=== PATIENT | male | born 1965 | race Caucasian/White ===

== ENCOUNTER 2019-04-01 03:40 | Emergency (ER) | payer OTHER ==
--- NOTE | 2019-04-01 04:27 | EDM.PDOCBH ---
ED HPI GENERAL MEDICAL PROBLEM - General Chief Complaint: Behavioral/Psych Stated Complaint: HAVING TROUBLE SLEEPING Time Seen by Provider: 04/01/19 03:50 Source of Information: Reports: Patient History Limitations: Reports: No Limitations - History of Present Illness INITIAL COMMENTS - FREE TEXT/NARRATIVE: Mr. Kelly is a very pleasant 54-year-old man with a past medical history significant for anxiety and depression, who states that he, his of 30 years , and daughter live in [place], [place], but that the patient works for the [employer] in [place] during the week, and is home only on weekends. They have had this arrangement for the past month. He states that he and his plan to retire in [place] in about 2 years, but that his daughter is currently in high school, and his is a teacher there in [place], therefore they cannot come to [place] yet. The patient is here in [facility], staying with one of his daughters, her ex-, and their 2 children. The patient states that he and his have a mutual friend, and that this friend has been hanging out with his during the week when he is gone. The patient states that he has previously argued with his about it, and he admits that he even accused his of some things, but he later relented and said that it was okay if they hung out. The patient is concerned, however, because he discovered [facility] that his and friend were watching the sunset together, and that they were still together at 10 PM. He stated "A man should not play in another man's playground." He states that he is feeling anxious about this, and that "I can't shut my brain down." He is here to see if his feelings are justifiable, or if they are unreasonable. The patient states that his anxiety was previously treated with lorazepam, but he was switched to Wellbutrin. Review of the [place] PMPi finds that the patient has 4 prior prescriptions for lorazepam 0.5 mg, from 05/25/16, 06/24/16, 12/2016, and , most recently, 02/17/2017. The patient is not requesting any medications at this time. The patient denies feeling suicidal or homicidal. He denies previously attempted to harm himself, and he states that he has never been psychiatrically hospitalized. He denies recent illness, such as fever, chills, chest pain, palpitations, cough, dyspnea, nausea, vomiting, constipation, diarrhea, abdominal pain, urinary symptoms, recent weight gain or weight loss, recent bloody bowel movements or black bowel movements, joint aches, headaches, or rashes. The patient's PCP is in [place], [place]. His Change Management Consultant is Dr. Iglesia Trinidad, at [facility]. - Related Data Allergies Allergy/AdvReac Type Severity Reaction Status Date / Time No Known Allergies Allergy Verified 04/01/19 03:56 Past Medical History Cardiovascular History: Reports: CAD, High Cholesterol, Hypertension, [place] (x 3) Gastrointestinal History: Reports: GERD, Hemorrhoids Psychiatric History: Reports: Anxiety, Depression - Past Surgical History HEENT Surgical History: Reports: Adenoidectomy, Tonsillectomy Cardiovascular Surgical History: Reports: Coronary Artery Stent (x 5), Other ( See Below) (3 coronary angiograms) Social & Family History - Tobacco Use Smoking Status *Q: Never Smoker - Caffeine Use Caffeine Use: Reports: Coffee - Alcohol Use Alcohol Use History: Yes Alcohol Use Frequency: Socially - Recreational Drug Use Recreational Drug Use: No - Living Situation & Occupation Living situation: Reports: , with Spouse, with Family (1 daughter) Occupation: Employed ([employer]) ED ROS GENERAL - Review of Systems Review Of Systems: ROS reveals no pertinent complaints other than HPI. ED EXAM, BEHAVIORAL HEALTH - Physical Exam Exam: See Below Exam Limited By: No Limitations General Appearance: Alert, WD/WN, No Apparent Distress Eye Exam: Bilateral Eye: EOMI, Normal Inspection Ears: Normal External Exam, Hearing Grossly Normal Nose: Normal Inspection Throat/Mouth: Normal Inspection, Normal Lips, Normal Voice, No Airway Compromise Head: Atraumatic, Normocephalic Neck: Normal Inspection, Full Range of Motion Respiratory/Chest: No Respiratory Distress, Lungs Clear, Normal Breath Sounds, No Accessory Muscle Use Cardiovascular: Normal Peripheral Pulses, Regular Rate, Rhythm, No Edema, No Gallop, No JVD, No Murmur, No Rub GI/Abdominal: Normal Bowel Sounds, Soft, Non-Tender, No Organomegaly, No Distention, No Abnormal Bruit, No Mass (Male) Exam: Deferred Rectal (Males) Exam: Deferred Back Exam: Normal Inspection, Full Range of Motion, NT Extremities: Normal Inspection, Normal Range of Motion, No Pedal Edema, Normal Capillary Refill Neurological: Alert, Normal Cognition, No Motor/Sensory Deficits, Oriented x 3 Psychiatric: Normal Affect Skin Exam: Warm, Dry, Intact, Normal color, No rash COURSE, BEHAVIORAL HEALTH COMP - Course Vital Signs: Last Vital Signs Temp 36.2 C 04/01/19 03:48 Pulse 86 04/01/19 03:48 Resp 20 04/01/19 03:48 BP 149/111 H 04/01/19 03:48 Pulse Ox 97 04/01/19 03:48 Medical Clearance: 04/01/19 04:20 I talked to the patient for a while and reassured him that it is not unreasonable that he is concerned about the situation with his . I suggested that he talk to his friend about appropriate boundaries. The patient requested a counselor in [place], however, I explained that we can refer patients to [facility] here in [place], but I don't know of any counselors in particular in [place]. I suggested that the patient look online or go through the physician referral service at [facility]. The patient was satisfied with that. I will discharge him home. Departure - Departure Time of Disposition: 04:22 Disposition: Home, Self-Care 01 Condition: Good Clinical Impression: Anxiety - Discharge Information *PRESCRIPTION DRUG MONITORING PROGRAM REVIEWED*: Yes *COPY OF PRESCRIPTION DRUG MONITORING REPORT IN PATIENT MAYELA: No Instructions: Living With Anxiety Referrals: Iglesia Trinidad MD [Ordering Only Provider] - PCP,Not In Area [Primary Care Provider] - Forms: ED Department Discharge Additional Instructions: You were seen in the emergency room for feelings of anxiety related to concerns about your . We recommend that you find a counselor in [place]. You can search online, or request one through the physician referral service at [facility]. Continue to take your usual medications as prescribed. If any other problems, please do not hesitate to return to the ER.
== END 2019-04-01 06:55 | disposition home or self-care (01) ==
LOC: JD.ED 03:40
DX: F41.9 Anxiety disorder, unspecified (principal); F32.9 Major depressive disorder, single episode, unspecified; I25.2 Old myocardial infarction; I10 Essential (primary) hypertension; Z79.899 Other long term (current) drug therapy
CPT/HCPCS: 99283

== ENCOUNTER 2021-05-16 00:53 | Emergency (ER) | payer OTHER ==
[2021-05-16] MEDS ORDERED: HYDROmorphone 0.5 MG/0.5 ML Syringe IVPUSH ONE ×2 (01:22→02:50)
[2021-05-16] MEDS ORDERED: Ondansetron 4 MG/2 ML SDV IVPUSH ONE (01:46)
--- NOTE | 2021-05-16 01:48 | EDM.PDOC ---
ED HPI GENERAL MEDICAL PROBLEM - General Chief Complaint: Chest Pain Stated Complaint: CHEST PAIN Time Seen by Provider: 05/16/21 01:14 Source of Information: Reports: Patient, Family () History Limitations: Reports: No Limitations - History of Present Illness INITIAL COMMENTS - FREE TEXT/NARRATIVE: Mr. Kelly is a very pleasant 56-year-old gentleman who now presents the ED after being woken around midnight with severe lower sternal and epigastric pain radiating through to his back. He describes it character as a pressure sensation, but states that it is a pain, not a discomfort. No associated nausea, dyspnea, diaphoresis, or sense of impending doom. The patient has a history of known coronary artery disease, with several MIs in the past. He states that his current symptoms are likely similar to prior MIs. The patient states that he took 3 tablets of nitroglycerin, 5 minutes apart, which did not help his symptoms at all. The patient states that he was diagnosed with COVID-19 on 04/16/2021, then was transferred to [place] on 04/28/2021 with what was thought to be an OK. He states that he underwent a coronary angiogram, finding diffuse disease, but no stents were placed. He states that a CABG was recommended, but not until his lungs improved from COVID pneumonia. He was discharged home on 05/02/2021 with a prescription for an 8-day course of steroids, which he just finished, and antibiotics, whose name he does not recall, which he is still on. Here in the ED today, the patient was initially found to be slightly tachypneic at 23 rpm, otherwise he is hemodynamically stable and afebrile. His initial oxygen saturation was 86% on room air, 95% on 1 L of oxygen per nasal cannula. The patient's PCP is Clark Baez NP, at [facility]. His Filling Winder is Dr. Iglesia Mcgregor, at [facility]. His Cardiothoracic Surgeon is Dr. Samuel Staples, at [facility]. Mid-Sternal Chest Pain Score (Numeric/FACES): 8 - Related Data Allergies Allergy/AdvReac Type Severity Reaction Status Date / Time No Known Allergies Allergy Verified 05/16/21 00:58 Past Medical History Cardiovascular History: Reports: CAD, High Cholesterol, Hypertension, [place] Gastrointestinal History: Reports: GERD, Hemorrhoids Psychiatric History: Reports: Anxiety, Depression - Infectious Disease History Infectious Disease History: Reports: Novel Coronavirus (dx'd 04/16/2021) - Past Surgical History HEENT Surgical History: Reports: Adenoidectomy, Oral Surgery (dental extractions), Tonsillectomy Cardiovascular Surgical History: Reports: Coronary Artery Stent (x 5), Other (See Below) (Coronary angiogram x 3) Social & Family History - Tobacco Use Tobacco Use Status *Q: Never Tobacco User - Caffeine Use Caffeine Use: Reports: Coffee - Alcohol Use Alcohol Use History: Yes Alcohol Use Frequency: Socially - Recreational Drug Use Recreational Drug Use: No - Living Situation & Occupation Living situation: Reports: , with Spouse, with Family (1 daughter) Occupation: Employed ([employer]) ED ROS GENERAL - Review of Systems Review Of Systems: Comprehensive ROS is negative, except as noted in HPI. ED EXAM, GENERAL - Physical Exam Exam: See Below Exam Limited By: No Limitations General Appearance: Alert, WD/WN, Mild Distress (appears uncomfortable) Eye Exam: Bilateral Eye: EOMI, Normal Inspection Ears: Normal External Exam, Hearing Grossly Normal Nose: Normal Inspection Throat/Mouth: Normal Inspection, Normal Lips, Normal Voice, No Airway Compromise Head: Atraumatic, Normocephalic Neck: Normal Inspection, Full Range of Motion Respiratory/Chest: No Respiratory Distress, Lungs Clear, Normal Breath Sounds, No Accessory Muscle Use, Chest Non-Tender (including the lower sternum) Cardiovascular: Normal Peripheral Pulses, Regular Rate, Rhythm, No Edema, No Gallop, No JVD, No Murmur, No Rub Peripheral Pulses: 3+: Radial (L), Radial (R) GI/Abdominal: Normal Bowel Sounds, Soft, Non-Tender (including the epigastrium), No Organomegaly, No Distention, No Abnormal Bruit, No Mass Back Exam: Normal Inspection, Full Range of Motion, NT Extremities: Normal Inspection, Normal Range of Motion, No Pedal Edema, Normal Capillary Refill Neurological: Alert, Oriented, Normal Cognition, No Motor/Sensory Deficits Psychiatric: Anxious Skin Exam: Warm, Dry, Intact, Normal Color, No Rash #1 Interpretation EKG Date: 05/16/21 Time: 00:58 Rhythm: NSR Rate (Beats/Min): 82 [place]: Normal P-Wave: Present QRS: Other (Late transition) ST-T: Normal QT: Normal Comparison: NA - No Prior EKG Course - Vital Signs Last Recorded V/S: Last Vital Signs Temp 36.6 C 05/16/21 00:58 Pulse 69 05/16/21 03:30 Resp 21 H 05/16/21 03:30 BP 118/81 05/16/21 03:30 Pulse Ox 91 L 05/16/21 03:30 - Orders/Labs/Meds Orders: Active Orders 24 hr Category Date Time Status Chest 1V Frontal [CR] Stat Exams 05/16/21 01:42 Taken Labs: Laboratory Tests 05/16/21 05/16/21 05/16/21 Range/Units 01:03 01:03 01:03 WBC 4.68 (4.23-9.07) K/mm3 RBC 5.61 (4.63-6.08) M/mm3 Hgb 18.6 H (13.7-17.5) gm/dl Hct 52.8 H (40.1-51.0) % MCV 94.1 H (79.0-92.2) fl MCH 33.2 H (25.7-32.2) pg MCHC 35.2 (32.2-35.5) g/dl RDW Std Deviation 52.9 H (35.1-43.9) fL Plt Count 94 L (163-337) K/mm3 MPV 9.0 L (9.4-12.3) fl Neutrophils % (Manual) 49 (40-60) % Band Neutrophils % 12 H (0-10) % Lymphocytes % (Manual) 30 (20-40) % Atypical Lymphs % 0 % Monocytes % (Manual) 7 (2-10) % Eosinophils % (Manual) 2 (0.8-7.0) % Basophils % (Manual) 0 L (0.2-1.2) Toxic Granulation 1+ slight Platelet Estimate Decreased RBC Morph Comment Normal D-Dimer, Quantitative 0.81 H (0.19-0.50) mg/L Sodium 133 L (136-145) mEq/L Potassium 4.2 (3.5-5.1) mEq/L Chloride 101 (98-107) mEq/L Carbon Dioxide 24 (21-32) mEq/L Anion Gap 12.2 (5-15) BUN 17 (7-18) mg/dL Creatinine 1.2 (0.7-1.3) mg/dL Est Cr Clr Drug Dosing 60.55 mL/min Estimated GFR (MDRD) > 60 (>60) mL/min BUN/Creatinine Ratio 14.2 (14-18) Glucose 175 H (70-99) mg/dL Calcium 8.4 L (8.5-10.1) mg/dL Total Bilirubin 0.7 (0.2-1.0) mg/dL AST 25 (15-37) U/L ALT 44 (16-63) U/L Alkaline Phosphatase 93 (46-116) U/L Troponin I < 0.017 (0.00-0.056) ng/mL Total Protein 6.8 (6.4-8.2) g/dl Albumin 2.5 L (3.4-5.0) g/dl Globulin 4.3 gm/dL Albumin/Globulin Ratio 0.6 L (1-2) Lipase (73-393) U/L 05/16/21 05/16/21 Range/Units 01:03 04:02 WBC (4.23-9.07) K/mm3 RBC (4.63-6.08) M/mm3 Hgb (13.7-17.5) gm/dl Hct (40.1-51.0) % MCV (79.0-92.2) fl MCH (25.7-32.2) pg MCHC (32.2-35.5) g/dl RDW Std Deviation (35.1-43.9) fL Plt Count (163-337) K/mm3 MPV (9.4-12.3) fl Neutrophils % (Manual) (40-60) % Band Neutrophils % (0-10) % Lymphocytes % (Manual) (20-40) % Atypical Lymphs % % Monocytes % (Manual) (2-10) % Eosinophils % (Manual) (0.8-7.0) % Basophils % (Manual) (0.2-1.2) Toxic Granulation Platelet Estimate RBC Morph Comment D-Dimer, Quantitative (0.19-0.50) mg/L Sodium (136-145) mEq/L Potassium (3.5-5.1) mEq/L Chloride (98-107) mEq/L Carbon Dioxide (21-32) mEq/L Anion Gap (5-15) BUN (7-18) mg/dL Creatinine (0.7-1.3) mg/dL Est Cr Clr Drug Dosing mL/min Estimated GFR (MDRD) (>60) mL/min BUN/Creatinine Ratio (14-18) Glucose (70-99) mg/dL Calcium (8.5-10.1) mg/dL Total Bilirubin (0.2-1.0) mg/dL AST (15-37) U/L ALT (16-63) U/L Alkaline Phosphatase (46-116) U/L Troponin I < 0.017 (0.00-0.056) ng/mL Total Protein (6.4-8.2) g/dl Albumin (3.4-5.0) g/dl Globulin gm/dL Albumin/Globulin Ratio (1-2) Lipase 163 (73-393) U/L Meds: Medications Discontinued Medications Generic Name Dose Route Start Last Admin Trade Name Freq PRN Reason Stop Dose Admin Al Hydroxide/Mg Hydroxide 30 0 ml 05/16/21 02:13 05/16/21 02:16 ml/ Lidocaine HCl 15 ml PO 05/16/21 02:14 45 ml ONETIME STA Administration Hydromorphone HCl 0.5 mg 05/16/21 01:22 05/16/21 01:29 Hydromorphone 0.5 Mg/0.5 Ml Syringe IVPUSH 05/16/21 01:23 0.5 mg ONETIME ONE Administration Hydromorphone HCl 0.5 mg 05/16/21 02:50 05/16/21 03:21 Hydromorphone 0.5 Mg/0.5 Ml Syringe IVPUSH 05/16/21 02:51 0.5 mg ONETIME ONE Administration Ondansetron HCl 4 mg 05/16/21 01:46 05/16/21 02:23 Ondansetron 4 Mg/2 Ml Sdv IVPUSH 05/16/21 01:47 Not Given ONETIME ONE - Re-Assessments/Exams Free Text/Narrative Re-Assessment/Exam: 05/16/21 01:43 The patient describes his central chest pain as a pain, not a discomfort, and it woke him from sleep. Both of these are features that are not consistent with angina or an acute OK. Additionally, his pain was not relieved by 3 tablets of nitroglycerin, which would not occur unless his chest pain was due to an acute OK. His ECG does not show any ischemic changes. A CBC, CMP, troponin, D-dimer, and ECG were obtained at triage. Given the location of his pain, I have added a lipase, along with a portable chest x-ray. In the meantime, the patient has been given IV Dilaudid, and I will add some Zofran. If his pain persists, I will try a GI cocktail. 05/16/21 02:13 The patient is requesting additional pain medication. We will try a GI cocktail. 05/16/21 02:30 The patient states that the GI cocktail may have helped his chest pain a little, but he's not sure. 05/16/21 02:45 Portable chest radiograph reviewed. The cardiac silhouette is within normal limits. No pulmonary vascular congestion. Likely small bilateral pleural effusions. Pleural thickening noted on the right. Bilateral hazy infiltrates, consistent with COVID pneumonia. No pneumothorax. Formal read per the Radiologist pending. The patient's CBC is remarkable for an H/H elevated at 18.6/52.8, and thrombocytopenia of 94,000. His CMP is remarkable for slight hyponatremia of 133, and hyperglycemia of 175, with the remainder of his CMP being unremarkable. His lipase is within normal limits at 163. His troponin is undetectably low. His D-dimer is slightly elevated at 0.81. We will repeat a troponin 4 hours after the onset of his chest pain = 04:00. 05/16/21 04:47 The patient's repeat troponin is still undetectably low. 05/16/21 04:52 Test results discussed with the patient. As above, today's work-up is grossly unremarkable. His pain does not appear to have been cardiac; if it were due to angina, he should have had relief with nitroglycerin, it would not have persisted for hours and hours. If it were due to an OK, his troponin would have risen, and we would have expected to have seen an ECG change. I suspect that the patient's pain is due to GERD. He states that he takes something for it already. I will have her follow-up with his PCP in that regard. The plan will be for the patient to remain here in the ED until about 06:30, at which time he will contact his to come pick him up. Departure - Departure Time of Disposition: 04:54 Disposition: Home, Self-Care 01 Condition: Good Clinical Impression: GERD (gastroesophageal reflux disease), Hyperglycemia Referrals: PCP,Not In Area [Primary Care Provider] - Samuel Staples MD, PhD [Consulting Physician] - Iglesia Trinidad MD [Ordering Only Provider] - Forms: ED Department Discharge Additional Instructions: You were seen in the emergency room after developing sudden onset severe lower chest pain. Work-up in the ER included numerous blood tests, a chest x-ray, and an ECG. Your blood work was remarkable for blood sugar elevated at 175. This is most likely due to a condition called prediabetes. We recommend that you follow-up with your PCP for further evaluation. Your platelets were found to be low, most likely due to COVID-19. The remainder of your work-up was unremarkable. You have not suffered a heart attack. The cause of your pain is uncertain, but is most likely due to GERD. Since you are already on an antacid medicine, we recommend that you discuss the issue with your PCP. You may benefit by being switched to a different antacid medicine. If any other problems, please do not hesitate to return to the ER. Sepsis Event Note (ED) - Evaluation Sepsis Screening Result: No Definite Risk - Focused Exam Vital Signs: Vital Signs Temp Pulse Resp BP Pulse Ox 05/16/21 03:30 69 21 H 118/81 91 L 05/16/21 02:19 75 25 H 120/78 96 05/16/21 02:00 69 22 H 118/81 94 L 05/16/21 01:31 69 35 H 121/79 99 05/16/21 00:58 36.6 C 83 23 H 86 L - My Orders Last 24 Hours: My Active Orders 05/16/21 01:42 Chest 1V Frontal [CR] Stat - Assessment/Plan Last 24 Hours: My Active Orders 05/16/21 01:42 Chest 1V Frontal [CR] Stat
[2021-05-16] MEDS ORDERED: Alum Hydrox/Mag Hydrox/Simeth 30 ML, Lidocaine 2% 15 ML PO STA ×2 (02:13)
--- NOTE | 2021-05-16 15:25 | CR ---
Chest: Portable view of the chest was obtained. Comparison: No prior chest imaging is available. Heart size and mediastinum are normal. Scattered parenchymal densities are seen within both lungs, worse within the bases. Bony structures show nothing acute. Impression: 1. Patchy parenchymal densities within both lungs, worse within the bases. Findings are most likely due to COVID pneumonia. Diagnostic code #3
== END 2021-05-16 06:24 | disposition home or self-care (01) ==
LOC: JD.ED 00:53
DX: K21.9 Gastro-esophageal reflux disease without esophagitis (principal); R73.9 Hyperglycemia, unspecified; I25.10 Atherosclerotic heart disease of native coronary artery without angina pectoris; E78.00 Pure hypercholesterolemia, unspecified; I10 Essential (primary) hypertension; I25.2 Old myocardial infarction; Z79.899 Other long term (current) drug therapy; Z86.16 Personal history of COVID-19; Z95.5 Presence of coronary angioplasty implant and graft
CPT/HCPCS: 36415; 71045; 80053; 83690; 84484; 85007; 85027; 85379; 93005; 96374; 96376; 99285; A9270; J1170

== ENCOUNTER 2021-05-16 09:55 | Emergency (ER) | payer OTHER ==
[2021-05-16] MEDS ORDERED: Sodium Chloride 0.9% 10 ML Syringe FLUSH PRN ×2 (10:20→13:01)
[2021-05-16] MEDS ORDERED: HYDROmorphone 0.5 MG/0.5 ML Syringe IVPUSH ONE ×5 (10:21→19:45)
[2021-05-16] MEDS ORDERED: Nitroglycerin/D5W 25 MG/250 ML BOTTLE IV SCH (10:30)
--- NOTE | 2021-05-16 11:29 | EDM.PDOC ---
ED HPI GENERAL MEDICAL PROBLEM - General Chief Complaint: Chest Pain Stated Complaint: chest pain Time Seen by Provider: 05/16/21 10:02 Source of Information: Reports: Patient History Limitations: Reports: No Limitations - History of Present Illness INITIAL COMMENTS - FREE TEXT/NARRATIVE: The patient returns for chest pain. The patient says the pain started last night. The pain is mid chest. He has some shortness of breath with it. The patient has bad coronary artery disease. He has a history of an PA with stents and he is supposed to get a CABG but he had COVID 4 weeks ago and they are waiting longer to let his lungs heal. He was seen here early this morning and an EKG, CXR and labs were done. His EKG showed no acute changes and his serial troponins were negative. He was sent home. He called his provider at [facility] and he recommended the patient come back to be evaluated again. The only thing helping his pain is nitro and his provider is worried this may still be his heart. The patient still has some pain when he arrived and he has shortness of breath. He has no fever, chills, or cough. He has no abdominal pain, nausea or vomiting. Onset: Gradual Duration: Day(s): (last night) Location: Reports: Chest Quality: Reports: Sharp Severity: Moderate Improves with: Reports: None Worsens with: Reports: None Associated Symptoms: Reports: Chest Pain. Denies: Cough, Fever/Chills, Headaches, Nausea/Vomiting, Shortness of Breath Mid-Sternal Chest Pain Score (Numeric/FACES): 6 - Related Data Allergies Allergy/AdvReac Type Severity Reaction Status Date / Time No Known Allergies Allergy Verified 05/16/21 10:24 Home Meds: Home Meds Aspirin [Aspirin EC] 81 mg PO DAILY 05/16/21 [History] Cefdinir 300 mg PO BID 05/16/21 [History] Clopidogrel Bisulfate [Plavix] 75 mg PO DAILY 05/16/21 [History] Metoprolol Succinate 12.5 mg PO BID 05/16/21 [History] Nitroglycerin [Nitrostat] 0.4 mg SL ASDIRECTED PRN 05/16/21 [History] Pantoprazole Sodium [Protonix] 40 mg PO DAILY 05/16/21 [History] Rosuvastatin Calcium [Crestor] 40 mg PO DAILY 05/16/21 [History] Venlafaxine HCl [Venlafaxine ER] 150 mg PO DAILY 05/16/21 [History] buPROPion HCL [Bupropion Xl] 300 mg PO DAILY 05/16/21 [History] Past Medical History Cardiovascular History: Reports: CAD, High Cholesterol, Hypertension, PA Gastrointestinal History: Reports: GERD, Hemorrhoids Psychiatric History: Reports: Anxiety, Depression - Infectious Disease History Infectious Disease History: Reports: Novel Coronavirus - Past Surgical History HEENT Surgical History: Reports: Adenoidectomy, Oral Surgery, Tonsillectomy Other HEENT Surgeries/Procedures: [place] tooth extraction Cardiovascular Surgical History: Reports: Coronary Artery Stent Social & Family History - Tobacco Use Tobacco Use Status *Q: Never Tobacco User - Caffeine Use Caffeine Use: Reports: Coffee - Recreational Drug Use Recreational Drug Use: No - Living Situation & Occupation Living situation: Reports: , with Spouse, with Family (1 daughter) Occupation: Employed ([employer]) ED ROS GENERAL - Review of Systems Review Of Systems: See Below Constitutional: Reports: No Symptoms HEENT: Reports: No Symptoms Respiratory: Reports: Shortness of Breath Cardiovascular: Reports: Chest Pain Endocrine: Reports: No Symptoms GI/Abdominal: Reports: No Symptoms ED EXAM, GENERAL - Physical Exam Exam: See Below Exam Limited By: No Limitations General Appearance: Alert, No Apparent Distress Ears: Normal External Exam Nose: Normal Inspection Head: Atraumatic, Normocephalic Neck: Normal Inspection Respiratory/Chest: No Respiratory Distress, Lungs Clear, Normal Breath Sounds Cardiovascular: Regular Rate, Rhythm, No Edema, No Murmur GI/Abdominal: Soft, No Organomegaly, No Mass, Tender (Moderate tenderness to the RUQ) Back Exam: Normal Inspection Extremities: Normal Inspection #1 Interpretation EKG Date: 05/16/21 Time: 10:00 Rhythm: NSR Rate (Beats/Min): 76 [place]: Normal P-Wave: Present QRS: Normal ST-T: Other (flattened T waves in the inferior, anterior and lateral leads) QT: Normal Course - Vital Signs Last Recorded V/S: Last Vital Signs Temp 97.0 F 05/16/21 10:17 Pulse 80 05/16/21 10:17 Resp 30 H 05/16/21 10:17 BP 139/90 05/16/21 10:17 Pulse Ox 96 05/16/21 10:17 - Orders/Labs/Meds Orders: Active Orders 24 hr Category Date Time Status Cardiac Monitoring [RC] . DIRECTED Care 05/16/21 10:20 Active Peripheral IV Care [RC] . DIRECTED Care 05/16/21 10:20 Active Nitroglycerin/D5W [Nitroglycerin 25 MG/D5W 250 ML] Med 05/16/21 10:30 Active 25 mg in 250 ml IV TITRATE Sodium Chloride 0.9% [Normal Saline] 100 ml Med 05/16/21 13:15 Active IV ASDIRECTED Sodium Chloride 0.9% [Saline Flush] Med 05/16/21 10:20 Active 10 ml FLUSH ASDIRECTED PRN Sodium Chloride 0.9% [Saline Flush] Med 05/16/21 13:01 Active 10 ml FLUSH ONETIME PRN Peripheral IV Insertion Adult [OM.PC] Stat Oth 05/16/21 10:20 Ordered Medication Orders Nitroglycerin/Dextrose (Nitroglycerin 25 Mg/D5w 250 Ml) 25 mg in 250 mls @ 6 mls/hr IV TITRATE JOHAN; Protocol Last Admin: 05/16/21 10:37 Dose: 10 mcg/min, 6 mls/hr Documented by: ESTHELAKRI Sodium Chloride (Normal Saline) 100 mls @ 75 mls/hr IV ASDIRECTED JOHAN Last Admin: 05/16/21 13:31 Dose: 75 mls/hr Documented by: DAVIS Sodium Chloride (Sodium Chloride 0.9% 10 Ml Syringe) 10 ml FLUSH ASDIRECTED PRN PRN Reason: Keep Vein Open Last Admin: 05/16/21 10:37 Dose: 10 ml Documented by: ESTHELAKRI Sodium Chloride (Sodium Chloride 0.9% 10 Ml Syringe) 10 ml FLUSH ONETIME PRN PRN Reason: IV FLUSH Last Admin: 05/16/21 13:31 Dose: 10 ml Documented by: DAVIS Labs: Laboratory Tests 05/16/21 05/16/21 05/16/21 Range/Units 10:00 10:00 10:00 WBC 8.72 (4.23-9.07) K/mm3 RBC 4.62 L (4.63-6.08) M/mm3 Hgb 14.5 D (13.7-17.5) gm/dl Hct 44.1 (40.1-51.0) % MCV 95.5 H (79.0-92.2) fl MCH 31.4 (25.7-32.2) pg MCHC 32.9 (32.2-35.5) g/dl RDW Std Deviation 51.6 H (35.1-43.9) fL Plt Count 145 L (163-337) K/mm3 MPV 9.1 L (9.4-12.3) fl Neut % (Auto) 82.4 H (34.0-67.9) % Lymph % (Auto) 7.5 L (21.8-53.1) % [place] % (Auto) 8.4 (5.3-12.2) % Eos % (Auto) 0.1 L (0.8-7.0) Baso % (Auto) 0.2 (0.1-1.2) % Neut # (Auto) 7.19 H (1.78-5.38) K/mm3 Lymph # (Auto) 0.65 L (1.32-3.57) K/mm3 [place] # (Auto) 0.73 (0.30-0.82) K/mm3 Eos # (Auto) 0.01 L (0.04-0.54) K/mm3 Baso # (Auto) 0.02 (0.01-0.08) K/mm3 D-Dimer, Quantitative 1.01 H (0.19-0.50) mg/L Sodium 135 L (136-145) mEq/L Potassium 4.4 (3.5-5.1) mEq/L Chloride 98 (98-107) mEq/L Carbon Dioxide 26 (21-32) mEq/L Anion Gap 15.4 H (5-15) BUN 15 (7-18) mg/dL Creatinine 1.4 H (0.7-1.3) mg/dL Est Cr Clr Drug Dosing TNP Estimated GFR (MDRD) 52 (>60) mL/min BUN/Creatinine Ratio 10.7 L (14-18) Glucose 242 H (70-99) mg/dL Calcium 8.9 (8.5-10.1) mg/dL Total Bilirubin 4.2 H (0.2-1.0) mg/dL AST 350 H (15-37) U/L ALT 257 H (16-63) U/L Alkaline Phosphatase 219 H (46-116) U/L Troponin I < 0.017 (0.00-0.056) ng/mL Total Protein 7.6 (6.4-8.2) g/dl Albumin 2.8 L (3.4-5.0) g/dl Globulin 4.8 gm/dL Albumin/Globulin Ratio 0.6 L (1-2) Lipase (73-393) U/L 05/16/21 05/16/21 Range/Units 10:10 17:11 WBC (4.23-9.07) K/mm3 RBC (4.63-6.08) M/mm3 Hgb (13.7-17.5) gm/dl Hct (40.1-51.0) % MCV (79.0-92.2) fl MCH (25.7-32.2) pg MCHC (32.2-35.5) g/dl RDW Std Deviation (35.1-43.9) fL Plt Count (163-337) K/mm3 MPV (9.4-12.3) fl Neut % (Auto) (34.0-67.9) % Lymph % (Auto) (21.8-53.1) % [place] % (Auto) (5.3-12.2) % Eos % (Auto) (0.8-7.0) Baso % (Auto) (0.1-1.2) % Neut # (Auto) (1.78-5.38) K/mm3 Lymph # (Auto) (1.32-3.57) K/mm3 [place] # (Auto) (0.30-0.82) K/mm3 Eos # (Auto) (0.04-0.54) K/mm3 Baso # (Auto) (0.01-0.08) K/mm3 D-Dimer, Quantitative (0.19-0.50) mg/L Sodium 135 L (136-145) mEq/L Potassium 4.4 (3.5-5.1) mEq/L Chloride 98 (98-107) mEq/L Carbon Dioxide 25 (21-32) mEq/L Anion Gap 16.4 H (5-15) BUN 12 (7-18) mg/dL Creatinine 1.0 (0.7-1.3) mg/dL Est Cr Clr Drug Dosing TNP Estimated GFR (MDRD) > 60 (>60) mL/min BUN/Creatinine Ratio 12.0 L (14-18) Glucose 180 H (70-99) mg/dL Calcium 9.0 (8.5-10.1) mg/dL Total Bilirubin 6.2 H (0.2-1.0) mg/dL AST 385 H (15-37) U/L ALT 367 H (16-63) U/L Alkaline Phosphatase 249 H (46-116) U/L Troponin I (0.00-0.056) ng/mL Total Protein 7.6 (6.4-8.2) g/dl Albumin 2.8 L (3.4-5.0) g/dl Globulin 4.8 gm/dL Albumin/Globulin Ratio 0.6 L (1-2) Lipase 87 (73-393) U/L Meds: Medications Generic Name Dose Route Start Last Admin Trade Name Freq PRN Reason Stop Dose Admin Nitroglycerin/Dextrose 25 mg in 250 mls @ 6 mls/hr 05/16/21 10:30 05/16/21 10:37 Nitroglycerin 25 Mg/D5w 250 Ml IV 10 mcg/min TITRATE JOHAN 6 mls/hr Administration Protocol 10 MCG/MIN Sodium Chloride 100 mls @ 75 mls/hr 05/16/21 13:15 05/16/21 13:31 Normal Saline IV 75 mls/hr ASDIRECTED JOHAN Administration Sodium Chloride 10 ml 05/16/21 10:20 05/16/21 10:37 Sodium Chloride 0.9% 10 Ml Syringe FLUSH 10 ml ASDIRECTED PRN Administration Keep Vein Open Sodium Chloride 10 ml 05/16/21 13:01 05/16/21 13:31 Sodium Chloride 0.9% 10 Ml Syringe FLUSH 10 ml ONETIME PRN Administration IV FLUSH Discontinued Medications Generic Name Dose Route Start Last Admin Trade Name Freq PRN Reason Stop Dose Admin Diazepam 2 mg 05/16/21 13:58 05/16/21 14:07 Diazepam 10 Mg/2 Ml Syringe IVPUSH 05/16/21 13:59 2 mg ONETIME ONE Administration Hydromorphone HCl 0.5 mg 05/16/21 10:21 05/16/21 10:34 Hydromorphone 0.5 Mg/0.5 Ml Syringe IVPUSH 05/16/21 10:22 0.5 mg ONETIME ONE Administration Hydromorphone HCl 0.5 mg 05/16/21 11:06 05/16/21 11:35 Hydromorphone 0.5 Mg/0.5 Ml Syringe IVPUSH 05/16/21 11:07 0.5 mg ONETIME ONE Administration Hydromorphone HCl 0.5 mg 05/16/21 15:07 05/16/21 15:13 Hydromorphone 0.5 Mg/0.5 Ml Syringe IVPUSH 05/16/21 15:08 0.5 mg ONETIME ONE Administration Hydromorphone HCl 0.5 mg 05/16/21 17:03 05/16/21 17:40 Hydromorphone 0.5 Mg/0.5 Ml Syringe IVPUSH 05/16/21 17:04 0.5 mg ONETIME ONE Administration Ceftriaxone Sodium 2 gm/ 100 mls @ 200 mls/hr 05/16/21 18:05 Sodium Chloride IV 05/16/21 18:34 ONETIME ONE Iopamidol 100 ml 05/16/21 13:01 05/16/21 13:30 Iopamidol 755 Mg/Ml 100 Ml Bottle IVPUSH 05/16/21 13:02 100 ml ONETIME ONE Administration - Re-Assessments/Exams Free Text/Narrative Re-Assessment/Exam: 05/16/21 11:39 I ordered an IV saline lock, nitro drip, EKG, and labs. His EKG shows a NSR with no acute changes. His platelets were low at 145. His D-dimer was elevated at 1.01. That went up from early this morning at .81. His Na is a little low at 135. His creatinine was elevated slightly at 1.4. His glucose was elevated at 282. His total bili is elevated at 4.2, AST elevated at 350, ALT elevated at 257 and alk phos is elevated at 219. 05/16/21 11:42 His liver enzymes were normal earlier this morning. His troponin is negative. His lipase is normal. I ordered a CT angio of his chest and an US of his gallbladder. 05/16/21 17:[address] shows no findings of pulmonary embolism. Scattered parenchymal densities within both lung most likely due to COVID pneumonia. The US shows liver is slightly echogenic raising the possibility of mild fatty infiltration. Gallbladder shows evidence of sludge but no shadowing gallstones are seen. No gallbladder wall thickening or biliary duct dilatation is seen. Nonvisualized pancreas and inferior vena cava. I called Dr Barros the perennial house manager manager of corporate communications at [facility] in [place]. He was not concerned for his heart at this time. I also talked with Dr Workman the GI specialist manager of corporate communications at [facility] and he recommended an MRCP. The MRCP shows dilated gallbladder containing sludge. Biliary ducts appear normal. Please correlate if patient should undergo biliary HIDA scan with ejection fraction to further evaluate. Small cyst within the inferior left kidney. I have ordered a repeat CMP. I will then call Dr Workman back at [facility]. 05/16/21 18:00 Dr Workman was not calling me back and they have no beds anyway in [place]. The patients blood sugar was 180. His total bili went up to 6.2. His AST has gone up to 385. His ALT has gone up to 367. His alk phos was elevated at 249. He still has pain. I gave him something more for pain. I called [facility] again and they had no beds. I called [facility] in [place] and talked with Dr Ramey the hospitalist manager of corporate communications and he recommended rocephin be given. I have ordered that. I also talked with Dr Angel the surgeon manager of corporate communications and he accepted the patient. Departure - Departure Time of Disposition: 18:35 Disposition: DC/[facility] to [facility] 02 Reason for Transfer *Q: Other Condition: Serious Clinical Impression: Pneumonia due to COVID-19 virus, Cholecystitis, Biliary colic Coronary artery disease Qualifiers: Coronary Disease-Associated Artery/Lesion type: unspecified vessel or lesion type [place] vs. transplanted heart: [place] heart Associated angina: unspecified whether angina present Qualified Code(s): I25.10 - Atherosclerotic heart disease of [place] coronary artery without angina pectoris Referrals: PCP,Not In Area [Primary Care Provider] - Forms: ED Department Discharge Sepsis Event Note (ED) - Evaluation Sepsis Screening Result: No Definite Risk - Focused Exam Vital Signs: Vital Signs Temp Pulse Resp BP Pulse Ox 05/16/21 10:17 97.0 F 80 30 H 139/90 96 - My Orders Last 24 Hours: My Active Orders 05/16/21 10:20 Cardiac Monitoring [RC] . DIRECTED Peripheral IV Care [RC] . DIRECTED Sodium Chloride 0.9% [Saline Flush] 10 ml FLUSH ASDIRECTED PRN Peripheral IV Insertion Adult [OM.PC] Stat 05/16/21 10:30 Nitroglycerin/D5W [Nitroglycerin 25 MG/D5W 250 ML] 25 mg in 250 ml IV TITRATE 05/16/21 13:01 Sodium Chloride 0.9% [Saline Flush] 10 ml FLUSH ONETIME PRN 05/16/21 13:15 Sodium Chloride 0.9% [Normal Saline] 100 ml IV ASDIRECTED - Assessment/Plan Last 24 Hours: My Active Orders 05/16/21 10:20 Cardiac Monitoring [RC] . DIRECTED Peripheral IV Care [RC] . DIRECTED Sodium Chloride 0.9% [Saline Flush] 10 ml FLUSH ASDIRECTED PRN Peripheral IV Insertion Adult [OM.PC] Stat 05/16/21 10:30 Nitroglycerin/D5W [Nitroglycerin 25 MG/D5W 250 ML] 25 mg in 250 ml IV TITRATE 05/16/21 13:01 Sodium Chloride 0.9% [Saline Flush] 10 ml FLUSH ONETIME PRN 05/16/21 13:15 Sodium Chloride 0.9% [Normal Saline] 100 ml IV ASDIRECTED
--- NOTE | 2021-05-16 12:47 | US ---
Limited abdominal ultrasound: Multiple real-time images were obtained of the upper right abdomen. Comparison: No prior abdominal imaging is available. Liver is slightly echogenic. Gallbladder contains no shadowing gallstones. Sludge is seen within the gallbladder. No gallbladder wall thickening is seen. No biliary duct dilatation is seen. Right kidney shows no hydronephrosis or mass. Right kidney has a length of 11.7 cm. Pancreas is obscured. Inferior vena cava is obscured. Main portal vein shows normal hepatopedal flow. Impression: 1. Liver is slightly echogenic raising the possibility of mild fatty infiltration. 2. Gallbladder shows evidence of sludge but no shadowing gallstones are seen. No gallbladder wall thickening or biliary duct dilatation is seen. 3. Nonvisualized pancreas and inferior vena cava. Diagnostic code #3
[2021-05-16] MEDS ORDERED: Iopamidol 755 Mg/ML 100 ML Bottle IVPUSH ONE (13:01)
[2021-05-16] MEDS ORDERED: Sodium Chloride 0.9% 100 ML IV SCH (13:15)
--- NOTE | 2021-05-16 13:58 | CT ---
CT chest Technique: Multiple axial sections through the chest were obtained. Intravenous contrast was utilized. Study has been performed as a pulmonary angiogram protocol. Comparison: Prior chest x-ray performed earlier on the same day (1:48 AM). Findings: Pulmonary arteries are well opacified. No filling defects are seen to indicate pulmonary embolism. Thoracic aorta shows no aneurysm. Small scattered lymph nodes are seen within the mediastinum which are felt to be within normal limits. No pericardial thickening is seen. Visualized upper abdominal structures show nothing acute. Lung window settings were reviewed which show scattered parenchymal densities within both lungs. No pleural effusions are seen. Bone window settings were reviewed which show no acute osseous finding. Impression: 1. No findings of pulmonary embolism. 2. Scattered parenchymal densities within both lungs most likely due to COVID pneumonia. Diagnostic code #3
--- NOTE | 2021-05-16 15:39 | CR ---
Skull: 2 views of the skull were obtained centered to the orbits. Comparison: No prior skull study is available. Visualized sinuses are clear. Surrounding bony structures show nothing acute. Mild degenerative change is seen within the cervical spine. Carotid artery calcification is seen. No radiopaque foreign object is seen. Impression: 1. Nothing is appreciated to contraindicate schedule MRI. Diagnostic code #2.
--- NOTE | 2021-05-16 16:49 | MR ---
MRI abdomen with MRCP Technique: Various axial and coronal images were obtained as well as MRCP. Comparison: Prior right upper quadrant abdominal ultrasound performed earlier on the same date (11:39 AM). Findings: Gallbladder is dilated. Gallbladder is noted to contain sludge. CHD, CBD and intrahepatic ducts are normal in size. No filling defects are seen to indicate biliary duct stone. Pancreatic duct also appears normal. Visualized portions of the liver and spleen appear within normal limits. Small cyst is noted within the inferior left kidney. Pancreas shows no discrete abnormality. Impression: 1. Dilated gallbladder containing sludge. Biliary ducts appear normal. Please correlate if patient should undergo biliary HIDA scan with ejection fraction to further evaluate. 2. Small cyst within the inferior left kidney. Diagnostic code #3
[2021-05-16] MEDS ORDERED: cefTRIAXone 2 GM in Sodium Chloride 0.9% 100 ML IV ONE (18:05)
[2021-05-16] MEDS ORDERED: HYDROmorphone 0.5 MG/0.5 ML Syringe IVPUSH PRN (19:46)
== END 2021-05-16 23:10 ==
LOC: JD.ED 09:55
DX: U07.1 COVID-19 (principal); J12.82 Pneumonia due to coronavirus disease 2019; K80.40 Calculus of bile duct with cholecystitis, unspecified, without obstruction; I25.10 Atherosclerotic heart disease of native coronary artery without angina pectoris; E78.00 Pure hypercholesterolemia, unspecified; I10 Essential (primary) hypertension; I25.2 Old myocardial infarction; K21.9 Gastro-esophageal reflux disease without esophagitis; Z86.16 Personal history of COVID-19; Z79.82 Long term (current) use of aspirin; Z79.02 Long term (current) use of antithrombotics/antiplatelets; Z79.899 Other long term (current) drug therapy; Z95.5 Presence of coronary angioplasty implant and graft
CPT/HCPCS: 36415; 70250; 71275; 74181; 76705; 80053; 83690; 84484; 85025; 85379; 93005; 96365; 96367; 96375; 96376; 99285; J0696; J1170; J3360; J3490; Q9967